=== PATIENT | male | born 1955 | race Caucasian/White ===

== ENCOUNTER 2021-08-21 01:27 | Day surgery (SDC) | payer MEDICARE, SELFPAY ==
[2021-08-11 13:06] VITALS: BMI 22.1
[2021-08-21 06:20] VITALS: BP 119/66; PULSE 52; RESP 18; TEMP 36.6; O2SAT 100; BMI 21.9
[2021-08-21] MEDS: LACTATED RINGERS 1,000 ML 150 ML IV CONT (06:42)
[2021-08-21 06:43] LABS: Glucose Point of Care 124 mg/dl (65-105)
--- NOTE | 2021-08-21 07:25 | WPDGICN ---
Assessment and Plan Assessment and plan (1) History of colon polyps: Code(s): Z86.010 - Personal history of colonic polyps Status: Acute Assessment and Plan: Patient was found to have benign adenomatous colon polyp in 2016. Plan is for surveillance colonoscopy now on a 5 year intervals in the future. (2) Family history of colon cancer in father: Code(s): Z80.0 - Family history of malignant neoplasm of digestive organs Status: Acute Assessment and Plan: Patient's father has a history of colon cancer. For this reason follow-up colonoscopy suggested in 5 year intervals in the future. GI Consult Note Consult date/time: 08/21/21 07:25 HPI: Alfonso Guerin is a 66 year old male Presents for screening colonoscopy. Patient reports his current weight appetite bowel movements are normal. He denies abdominal pain. He has had no bleeding. Family history is significant his father had colon cancer. Patient's previous colonoscopy 2016 patient was found to have a colon polyp. Patient has a distal personal history of bladder cancer as well. He presents today for neoplasia screening colonoscopy. Review of Systems Review of Systems: All systems reviewed & are unremarkable except as noted in HPI and below PMFSH Past Medical History Medical History Screening for colon cancer Screening for prostate cancer Family History Family History Mother Family history of diabetes mellitus in first degree relative Family history of malignant neoplasm of urinary bladder Hypertension Cerebrovascular accident Grandparent Cerebrovascular accident Family history of Parkinson's disease Family history of emphysema Family history of dementia Father Carcinoma of colon Family history of malignant neoplasm of urinary bladder Other Diabetes mellitus Social History Social History Smoking packs per day: 0.5 Smoking cigarettes per day: 10.0 Years smoked: 10 Smoking pack-years: 5.00 Smoking status: Former smoker Tobacco type: cigarettes Second hand tobacco smoke exposure: Yes Smoking end date: 05/17/99 Alcohol intake: current Drinks per week: 50 Substance use: never Substance use type: does not use Living arrangements: with family Spiritual care concerns: No Meds Home Medications and Allergies Home Medications Medication Instructions Recorded Confirmed Type blood-glucose meter #1 each 05/26/19 08/21/21 Rx psyllium seed (sugar) oral powder 1 tbsp PO DAILY 03/04/20 08/21/21 History lancets 33 gauge #100 ea 05/22/20 08/21/21 Rx cholecalciferol (vitamin D3) 25 25 mcg PO DAILY 12/03/20 08/21/21 History mcg (1,000 unit) capsule mecobalamin (vitamin B12) 1,000 1,000 mcg PO DAILY 12/03/20 08/21/21 History mcg chewable tablet blood sugar diagnostic #100 ea 12/30/20 08/21/21 Rx allopurinol 300 mg tablet 300 mg PO DAILY #90 tablet 08/19/21 08/21/21 Rx metformin 500 mg tablet,extended See Rx Instructions .ROUTE 08/19/21 08/21/21 Rx release 24 hr .COMPLEX #180 tablet olmesartan 40 mg tablet 40 mg PO DAILY #90 tablet 08/19/21 08/21/21 Rx Allergies Allergy/AdvReac Type Severity Reaction Status Date / Time No Known Allergies Allergy Verified 08/21/21 06:28 Vital Signs Vital Signs - 24 hr 08/21/21 06:20 Temperature 97.9 F Pulse Rate 52 L Respiratory Rate 18 Blood Pressure 119/66 Pulse Oximetry 100 Exam Narrative: Physical exam reveals patient to be alert. Vital signs stable. HEENT exam is unremarkable. Patient is anicteric. Lungs are clear to auscultation and percussion. Heart is without murmur or extra sounds. Abdominal exam bowel sounds are present soft nontender with no organomegaly. Digital external rectal exam is normal.
--- NOTE | 2021-08-21 07:28 | WPDANESEPPF ---
Anes - Initial Pre Proc Eval Procedure: Operation Date: 08/21/21 07:30 Proposed Procedures p Screening Colonoscopy - Chad Graham MD Date/Time: 08/21/21 07:28 Surgeon: Chad Graham MD Pre Op Diagnosis: hx of colon polyps Patient Data Age: 66 Gender: M Height: 1.78 m Weight: 69.4 kg Last Vital Signs Temp 97.9 F 08/21/21 06:20 Pulse 52 L 08/21/21 06:20 Resp 18 08/21/21 06:20 BP 119/66 08/21/21 06:20 Pulse Ox 100 08/21/21 06:20 Allergies Allergy/AdvReac Type Severity Reaction Status Date / Time No Known Allergies Allergy Verified 08/21/21 06:28 Home Medications Medication Instructions Recorded Confirmed Type blood-glucose meter #1 each 05/26/19 08/21/21 Rx psyllium seed (sugar) oral powder 1 tbsp PO DAILY 03/04/20 08/21/21 History lancets 33 gauge #100 ea 05/22/20 08/21/21 Rx cholecalciferol (vitamin D3) 25 25 mcg PO DAILY 12/03/20 08/21/21 History mcg (1,000 unit) capsule mecobalamin (vitamin B12) 1,000 1,000 mcg PO DAILY 12/03/20 08/21/21 History mcg chewable tablet blood sugar diagnostic #100 ea 12/30/20 08/21/21 Rx allopurinol 300 mg tablet 300 mg PO DAILY #90 tablet 08/19/21 08/21/21 Rx metformin 500 mg tablet,extended See Rx Instructions .ROUTE 08/19/21 08/21/21 Rx release 24 hr .COMPLEX #180 tablet olmesartan 40 mg tablet 40 mg PO DAILY #90 tablet 08/19/21 08/21/21 Rx Laboratory Tests 08/21/21 06:34 POC Capillary Glucose 124 mg/dl H mg/dl (65-105) Patient hx anesthesia problems: none Family hx anesthesia problems: none Results Review: All pre-operative results and documents have been reviewed as part of the pre-operative evaluation. [facility] Past Medical History Medical History Screening for colon cancer Screening for prostate cancer Family History Family History Mother Family history of diabetes mellitus in first degree relative Family history of malignant neoplasm of urinary bladder Hypertension Cerebrovascular accident Grandparent Cerebrovascular accident Family history of Parkinson's disease Family history of emphysema Family history of dementia Father Carcinoma of colon Family history of malignant neoplasm of urinary bladder Other Diabetes mellitus Social History Social History Smoking packs per day: 0.5 Smoking cigarettes per day: 10.0 Years smoked: 10 Smoking pack-years: 5.00 Smoking status: Former smoker Tobacco type: cigarettes Second hand tobacco smoke exposure: Yes Smoking end date: 05/17/99 Alcohol intake: current Drinks per week: 50 Substance use: never Substance use type: does not use Living arrangements: with family Spiritual care concerns: No Anes - Eval Final PreProcedure Day of Procedure 08/21/21 07:28 Patient weight: normal Heart: regular rate and rhythm Lungs: clear to auscultation Airway: Mallampati scale class II Neurological: alert and oriented Last oral intake: >/= 8 hours ASA classification: III Emergent: no Anesthetic plan: proceed Anesthesia type and monitoring: general GIVS and standard monitoring Results Review: All pre-operative results and documents have been reviewed as part of the pre-operative evaluation. Informed Consent: The patient's anesthetic plan and its attendant risks and benefits were discussed with the patient/family/POA. Questions were solicited and answers provided to the satisfaction of the patient/family/POA.
[2021-08-21 07:50] VITALS: BP 105/66; PULSE 55; RESP 14; O2SAT 100
[2021-08-21 08:00] VITALS: BP 111/72; PULSE 59; RESP 17; O2SAT 100
[2021-08-21 08:10] VITALS: BP 124/78; PULSE 50; RESP 16; O2SAT 100
== END 2021-08-21 08:20 | disposition home or self-care (01) ==
PROVIDERS: PCP Internal Medicine; Visit Provider Internal Medicine Gastroenterology
PROC: 0DJD8ZZ Inspection of Lower Intestinal Tract, Via Natural or Artificial Opening Endoscopic (ICD-10-PCS; CPT 45378; principal; 2021-08-21 07:30)
DX: Z12.11 Encounter for screening for malignant neoplasm of colon (principal); D12.2 Benign neoplasm of ascending colon; D12.5 Benign neoplasm of sigmoid colon; K64.8 Other hemorrhoids; Z80.0 Family history of malignant neoplasm of digestive organs; Z87.891 Personal history of nicotine dependence; Z79.84 Long term (current) use of oral hypoglycemic drugs; Z85.51 Personal history of malignant neoplasm of bladder
CPT/HCPCS: 45385; 82948; 88305; J2704; J7120

== ENCOUNTER 2022-11-05 09:25 | Outpatient (CLI) | payer MEDICARE, SELFPAY ==
--- NOTE | ~2022-11-05 | US_ITS ---
EXAMINATION: US aorta DATE: 11/05/2022 10:13 CDT INDICATION: Personal history of nicotine dependence TECHNIQUE: Grayscale, color Doppler, and pulsed Doppler images of the aorta and common iliac arteries were obtained. COMPARISON: None. FINDINGS: The proximal aorta measures 2.6 cm greatest sagittal dimension. The mid aorta measures 2.2 cm greates t sagittal dimension. The distal aorta measures 2.1 cm greatest sagittal dimension. The right common internal iliac artery measures 11 mm. The left common iliac artery measures 11 mm. IMPRESSION: 1. Normal caliber aorta without evidence for aneurysm. Reviewed, dictated and finalized at location L.
== END 2022-11-05 09:26 | disposition home or self-care (01) ==
PROVIDERS: PCP Family Medicine; Visit Provider Family Medicine
DX: Z87.891 Personal history of nicotine dependence (principal)
CPT/HCPCS: 76775

== ENCOUNTER 2023-04-30 10:31 | Outpatient (CLI) | payer MEDICARE, SELFPAY ==
--- NOTE | ~2023-04-30 | XR_ITS ---
EXAMINATION: XR hip RT 2V w AP pelvis INDICATION: Right hip pain TECHNIQUE: AP view the pelvis and two views of the right hip are obtained. COMPARISON: 07/31/2011 FINDINGS: Bone alignment is normal. There is no fracture. There is mild osteoarthritis of the hips. H ips IMPRESSION: 1. Mild osteoarthritis of the hips. Reviewed, dictated and finalized at location B. [facility]
== END 2023-04-30 10:32 | disposition home or self-care (01) ==
PROVIDERS: PCP Family Medicine; Visit Provider Nurse Practitioner Family
DX: M16.0 Bilateral primary osteoarthritis of hip (principal)
CPT/HCPCS: 73502

== ENCOUNTER 2023-05-26 07:53 | Outpatient (CLI) | payer MEDICARE, SELFPAY | END 2023-05-26 07:54 | disposition home or self-care (01) | LOC: ANHAUDASC 07:54 | PROVIDERS: PCP Family Medicine; Visit Provider Nurse Practitioner Family | DX: H90.3 Sensorineural hearing loss, bilateral (principal) | CPT/HCPCS: 92557; 92567 ==